=== PATIENT | male | born 1995 | race Caucasian/White ===

== ENCOUNTER → 2016-09-25 | Outpatient (CLI) | payer OTHER | LOC: FCPNEURO 20:00 | PROVIDERS: ATTEND Internal Medicine Sleep Medicine | DX: G47.33 Obstructive sleep apnea (adult) (pediatric) (principal) ==

== ENCOUNTER 2016-11-28 12:23 | Day surgery (SDC) | payer OTHER ==
[2016-11-28] MEDS ORDERED: BACITRACIN ZINC 14.2 GM OINTTUBE TP ONE (12:34)
[2016-11-28] MEDS ORDERED: LIDO/EPI 1% **Not for Epidural 20 ML MDV ONE (12:35)
[2016-11-28] MEDS ORDERED: OXYMETAZOLINE 30 ML NASAL SPRAY ONE (12:35)
[2016-11-28] MEDS ORDERED: PETROLAT,WHT/MIN OIL/SOD CHL 3.5 GM OPHT.OINT ONE (12:35)
[2016-11-28] MEDS ORDERED: ceFAZolin 2 GM/DEXTROSE 100 ML IV ONE (12:39)
[2016-11-28] MEDS ORDERED: DEXAMETHASONE 10 MG/ML VIAL IVP ONE (12:39)
[2016-11-28] MEDS ORDERED: OXYMETAZOLINE 30 ML NASAL SPRAY EACHNARE ONE (12:39)
[2016-11-28] MEDS ORDERED: LR 1,000 ML IV ONE (12:53)
[2016-11-28] MEDS ORDERED: BACITRACIN OINTMENT 1 PACKET TP ONE ×2 (13:00→14:30)
--- NOTE | 2016-11-28 13:45 | PDHPUP ---
History & Physical Update H&P update statement: This history and physical update is based on an assessment of the patient which was completed after admission or registration (within 24 hours), but prior to the surgery/procedure. H&P update: no change in patient's condition since H&P completed
[2016-11-28] MEDS ORDERED: MUPIROCIN 2% 22 GM OINT ONE (14:17)
[2016-11-28] MEDS ORDERED: MIDAZOLAM 2 MG/2 ML VIAL ONE (14:25)
--- NOTE | 2016-11-28 14:26 | PDANEPAE ---
ANE Past Medical History - Cardiovascular History Hx Hypertension: No Hx Arrhythmias: No Hx Chest Pain: No Hx Coronary Artery / Peripheral Vascular Disease: No Hx CHF / Valvular Disease: No Hx Palpitations: No - Pulmonary History Hx COPD: No Hx Asthma/Reactive Airway Disease: No Hx Recent Upper Respiratory Infection: No Hx Oxygen in Use at Home: No Hx Sleep Apnea: Yes Sleep Apnea Screening Result - Last Documented: Positive Pulmonary History Comment: TRIPP- uses nothing at this time. First step is this surgery. - Neurologic History Hx Cerebrovascular Accident: No Hx Seizures: No Hx Dementia: No - Endocrine History Hx Diabetes: No - Renal History Hx Renal Disorders: No - Liver History Hx Hepatic Disorders: No - Neurological & Psychiatric Hx Hx Neurological and Psychiatric Disorders: Yes Neurological / Psychiatric History Comment: depression, anxiety, ADD - Cancer History Hx Cancer: No - Congenital Disorder History Hx Congenital Disorders: No - GI History Hx Gastrointestinal Disorders: No - Other Health History Other Health History: deviated septum, "can't breathe through my nose" . "can' t sleep-sees sleep Dr" - Chronic Pain History Chronic Pain: No - Surgical History Prior Surgeries: wisdom teeth in oral surgeon's office- minimal anesthesia ANE Review of Systems - Exercise capacity METS (RN): 6 METS ANE Patient History - Allergies Allergies/Adverse Reactions: No Known Allergies Allergy (Unverified 11/19/16 11:47) - Home Medications Home Medications: ADDERALL 15 MG TABLET 11/19/16 [Last Taken 11/25/16] Escitalopram Oxalate 11/19/16 [Last Taken 11/28/16] Propranolol HCl 11/19/16 [Last Taken 11/21/16] buPROPion 11/19/16 [Last Taken 11/28/16] - NPO status NPO Since - Liquids (Date): 11/28/16 NPO Since - Liquids (Time): 10:00 NPO Since - Solids (Date): 11/27/16 NPO Since - Solids (Time): 23:00 - Smoking Hx Smoking Status: Never smoked - Family Anes Hx Family Hx Anesthesia Complications: none ANE Labs/Vital Signs - Vital Signs Blood Pressure: 133/78 Heart Rate: 58 Respiratory Rate: 13 O2 Sat (%): 97 Height: 190.5 cm Weight: 79.379 kg ANE Physical Exam - Airway Neck exam: FROM Mouth exam: normal dental/mouth exam - Pulmonary Pulmonary: no respiratory distress, no rales or rhonchi, clear to auscultation - Cardiovascular Cardiovascular: regular rate and rhythym, no murmur, rub, or gallop - ASA Status ASA Status: II ANE Anesthesia Plan Anesthesia Plan: general endotracheal anesthesia
[2016-11-28] MEDS ORDERED: fentaNYL 100 MCG/2 ML INJ ONE ×3 (14:36)
[2016-11-28] MEDS ORDERED: PROPOFOL 200 MG/20 ML VIAL ONE (14:37)
[2016-11-28] MEDS ORDERED: ROCURONIUM 50 MG/5 ML VIAL ONE (14:47)
[2016-11-28] MEDS ORDERED: ONDANSETRON 4 MG/2 ML VIAL ONE (14:47)
[2016-11-28] MEDS ORDERED: LIDOCAINE 2% 5 ML SDV ONE (14:47)
[2016-11-28] MEDS ORDERED: HYDROCODONE/APAP 5/325 TAB PO PRN (15:42)
[2016-11-28] MEDS ORDERED: fentaNYL 100 MCG/2 ML INJ IVP PRN (15:42)
[2016-11-28] MEDS ORDERED: OXYCODONE/APAP 5/325 TAB PO PRN (15:42)
[2016-11-28] MEDS ORDERED: NALOXONE HCL 0.4 MG/ML INJ IVP PRN (15:42)
[2016-11-28] MEDS ORDERED: PROMETHAZINE HCL 25 MG/ML INJ IVP PRN (15:42)
[2016-11-28] MEDS ORDERED: LABETALOL HCL 50 MG/10 ML SYR IVP PRN (15:42)
[2016-11-28] MEDS ORDERED: MEPERIDINE 25 MG/ML SYR IVP PRN (15:42)
[2016-11-28] MEDS ORDERED: ENALAPRILAT DIHYDRATE 1.25 MG/ML VIAL IVP PRN (15:42)
[2016-11-28] MEDS ORDERED: LR 500 ML IV PRN (15:42)
[2016-11-28] MEDS ORDERED: ONDANSETRON 4 MG/2 ML VIAL IVP PRN (15:42)
[2016-11-28] MEDS ORDERED: ACETAMINOPHEN 500 MG TAB PO PRN (15:42)
--- NOTE | 2016-11-28 17:28 | POSTOPPROG ---
Post Op Note Date of Operation: 11/28/16 Surgeon: Libby Goel Show Horse Driver: none Anesthesia: GET(General Endotracheal) Pre-op Diagnosis: DNS, nasal valve stenosis, turbinate hypertrophy Post-op Diagnosis: same Procedure: open septoplasty with nasal valve repair and SMR turbinates Inf/Abcess present in the surg proc area at time of surgery?: No Depth: Superfical (Skin SQ) EBL: 100-500 Total fluids administered: 1000 Specimen(s): none
[2016-11-28] MEDS ORDERED: OXYCODONE/APAP 5/325 TAB PO ONE (17:30)
[2016-11-28] MEDS ORDERED: HYDROmorphONE/DILAUDID 1 MG/ML SYR ONE (17:42)
[2016-11-28] MEDS: HYDROmorphONE/DILAUDID 1 MG/ML SYR IVP PRN ×3 (17:44→18:15)
--- NOTE | 2016-11-28 17:56 | POSTANESTH ---
Post Anesthetic Evaluation Cardiovascular Status: Other, See Comment (Tachycardic (about 110) on arrival.) Respiratory Status: Normal, Stable, Similar to Pre-op Cond. Level of Consciousness/Mental Status: Can Participate in Eval, Alert and Oriented Pain Control: Adequate, Prn Tx Ordered Nausea/Vomiting Control: Adequate, Prn Tx Ordered Complications Possibly Related to Anesthesia: None Noted
[2016-11-28 18:21] VITALS: BP 130/77; PULSE 96; RESP 13; TEMP 97.3; O2SAT 94
--- NOTE | 2016-11-29 02:08 | GOP ---
[f rep st] OPERATIVE REPORT DATE OF OPERATION: 11/28/2016 SURGEON: Libby Goel MD [employer] TEACHER: None. ANESTHESIA: General endotracheal. PREOPERATIVE DIAGNOSIS: 1. Deviated nasal septum. 2. Nasal vestibular stenosis. 3. Turbinate hypertrophy. POSTOPERATIVE DIAGNOSIS: 1. Deviated nasal septum. 2. Nasal vestibular stenosis. 3. Turbinate hypertrophy. PROCEDURE PERFORMED: 1. Open septoplasty. 2. Nasal valve repair with use of staff anesthesiologist grafts. 3. Submucous resection of bilateral inferior turbinates. FINDINGS: 1. Severely deviated and fractured bony cartilaginous septum to the right, 100%. 2. Narrow internal nasal valves bilaterally. 3. Asymmetric nasal valves, with the left being smaller than the right. 4. Right lower lateral cartilage concave upon opening the nose with excessive cartilage larger and more prominent than the left side. SPECIMENS: None. ESTIMATED BLOOD LOSS: 100 cc. INDICATIONS: Patient is a pleasant 21-year-old male, who has a history of chronic nasal obstruction as well as difficulty sleeping. He has been working with the [employer], and it is re commended that nasal surgery be performed to help facilitate improved nasal breathing and improved s leep hygiene. Risks, benefits, and alternatives of the above procedure were discussed, and decided to proceed forward. DESCRIPTION OF PROCEDURE: Patient was met in preoperative holding and informed consent was confirme d. The patient was brought to the operating room. He underwent induction of general anesthesia and placed on endotracheal tube without difficulty. He was rotated 90 degrees to the operating surgeon . An inverted V incision was marked and 7 cc of 1% lidocaine with 1000 epinephrine was infiltrated throughout the nasal septum as well as the nasal dorsum. He was then widely prepped and draped in t he standard fashion. The inverted V incision was opened with a 15-blade scalpel as well as [place] scissors. Then, using 2-point retraction, this was transitioned into marginal incisions. The soft tissue envelope was opened over the nasal dorsum. The right lower lateral cartilage was very conve x and constricted as compared to the left side. This resulted in an overly prominent tip shadow laurence t was noted prior. The lower lateral cartilages were then grasped laterally and the septum was iden tified, and submucoperichondrial flaps were elevated bilaterally. The septum was very deviated. Es sentially, the crest was also part of the obstruction to the right. Preserving 1.5 cm dorsally and 1.5 cm caudally; however, I was able to remove the remaining bony cartilaginous septum in the centra l portion. This included using an osteotome to remove a portion of the nasal crest that was obstruc ting. There was also a very large bony spur posteriorly. Once this was achieved, an additional inf erior portion of the caudal edge of the septum had to be shaved to help prevent bowing of this segme nt, as there was essentially excessive cartilage causing persistent deviation to the right. Next, t he upper lateral cartilages were from the dorsal septum and staff anesthesiologist grafts were fashioned from the previously harvested cartilage septum, and secured between the dorsal septum as well as th e upper lateral cartilages using 5-0 PDS suture in a horizontal mattress fashion. The septum rested in the midline at this point, and there was excellent tip support, and no additional maneuvers were required to bring the caudal septum back into the midline. At this point, a 0-degree rigid endosco pe was introduced, and 1 cc of 1% lidocaine with 1000 epinephrine was distributed between each infer ior turbinate head. Stab incisions were made into each inferior turbinate head using a 2 mm microde brider. A submucous resection of each inferior turbinate was also performed. Each inferior turbina te was then outfractured as well. At this point, the nose was widely patent to the level of the cho graciela. There was a rent in the right mucosal flap consistent with where the severe deviation was, but it was intact on the left side, and I therefore opted to leave it as a drainage hole. At this poin t, I reconstituted the nasal tip and it became evident that the right nasal tip was always going to remain more prominent than the left without additional maneuvers. The tip was elevated off the nasa l vestibular skin and then bisected just inferiorly to the most prominent point, and overlapped to c reate a more symmetric tip. The tip was then reconstituted using interdermal sutures, as well as th e medial crura were reconstituted as well. This was all done with 5-0 PDS suture. Next, soft dayami tic splints were then placed bilaterally and affixed using 3-0 nylon, and finally the columellar inc ision was closed with 6-0 Prolene suture in a simple fashion. The nose was suctioned free of any ex cess blood, and he was cleansed of any excess preparatory iodine. Mastisol, Steri-Strips, and a yemi al thermoplastic splint was then applied, and the patient was then turned back to Anesthesia for wak e up. At the end of this procedure, all sponge and sharp counts were correct. I personally perform ed all portions of this case. FLUIDS: 1 L of crystalloid. /[id number]/MODL
== END 2016-11-28 18:41 | disposition home or self-care (01) ==
LOC: FSGY 12:23
PROVIDERS: ATTEND Otolaryngology
PROC: 09T Ear, Nose, Sinus, Resection (ICD-10-PCS; principal; 2016-11-28 14:00)
PROC: 09TL0ZZ Resection of Nasal Turbinate, Open Approach (ICD-10-PCS; principal; 2016-11-28 14:00)
DX: J34.2 Deviated nasal septum (principal); J34.3 Hypertrophy of nasal turbinates; G47.33 Obstructive sleep apnea (adult) (pediatric); F41.8 Other specified anxiety disorders
CPT/HCPCS: J0690; J1100; J1170; J2250; J2405; J2704; J3010